=== PATIENT | female | born 1970 | race Caucasian/White ===

== ENCOUNTER 2021-02-02 16:31 | Outpatient (REF) | payer OTHER, SELFPAY ==
[2021-02-02 19:47] LABS: Hemoglobin A1C 5.6 % (<5.7)
[2021-02-02 19:59] LABS: Anion Gap 3.1 mmol/L (3-11); BUN 18 mg/dL (7-18); CO2 30.9 mmol/L (21.0-32.0); CREATININE 0.7 mg/dL (0.55-1.02); Calcium 9.2 mg/dL (8.5-10.1); Calculated LDL 102 mg/dL (<100); Chloride 105 mmol/L (98-107); Cholesterol 182 mg/dL (<200); Glucose 85 mg/dL (74-106); HDL Cholesterol 45 mg/dL (40-60); Potassium 3.9 mmol/L (3.5-5.1); Sodium 139 mmol/L (136-145); TSH 0.83 uIU/mL (0.36-3.74); Triglyceride 175 mg/dL (<150)
== END 2021-02-02 16:32 | disposition home or self-care (01) ==
LOC: NCHCN 16:31
PROVIDERS: PCP Internal Medicine; Visit Provider Internal Medicine
DX: Z00.00 Encounter for general adult medical examination without abnormal findings (principal); M79.7 Fibromyalgia; M77.8 Other enthesopathies, not elsewhere classified
CPT/HCPCS: 80048; 80061; 83036; 84443